=== PATIENT | male | born 1995 ===

== ENCOUNTER 2020-11-29 13:58 | Emergency (ER) | payer OTHER ==
--- NOTE | 2020-11-29 14:19 | EDM.PDOC ---
ED HPI GENERAL MEDICAL PROBLEM - General Chief Complaint: General Stated Complaint: EMS Time Seen by Provider: 11/29/20 14:02 Source of Information: Reports: Patient History Limitations: Reports: No Limitations - History of Present Illness INITIAL COMMENTS - FREE TEXT/NARRATIVE: Patient is a 25-year-old male brought in today for possible seizure. Patient is a diabetic and takes insulin. Patient girlfriend states that this morning patient had episode diffuse body shaking and lasted for about 15 seconds. She checked patient did not check his sugar but she gave him some food and when EMS arrived his sugar was 70 sugar was low before EMS arrived. States he had 1 beer last night but did not have any head injuries does not take any drugs or had any signs of infection fever chills nausea vomiting. Patient states that his last visit he seconds and resolved on his own without any medication. - Related Data Allergies Allergy/AdvReac Type Severity Reaction Status Date / Time No Known Allergies Allergy Verified 11/29/20 14:04 Home Meds: Home Meds Buprenorphine HCl/Naloxone HCl [Suboxone 12 mg-3 mg Sl Film] 8 mg PO BID 11/29/20 [History] Insulin Aspart [NovoLOG] 0 unit WITHMEALSANDBED 11/29/20 [History] Insulin Glarg,Human.Rec.Analog [Lantus] 11/29/20 [History] ED ROS GENERAL - Review of Systems Review Of Systems: See Below Constitutional: Reports: No Symptoms HEENT: Reports: No Symptoms Respiratory: Reports: No Symptoms Cardiovascular: Reports: No Symptoms Endocrine: Reports: No Symptoms GI/Abdominal: Reports: No Symptoms : Reports: No Symptoms Musculoskeletal: Reports: Hand Pain Skin: Reports: No Symptoms Neurological: Reports: No Symptoms Psychiatric: Reports: No Symptoms Hematologic/Lymphatic: Reports: No Symptoms Immunologic: Reports: No Symptoms ED EXAM, GENERAL - Physical Exam Exam: See Below Exam Limited By: No Limitations General Appearance: Alert, WD/WN, No Apparent Distress Eye Exam: Bilateral Eye: EOMI, PERRL Head: Atraumatic, Normocephalic Neck: Normal Inspection, Supple, Non-Tender Respiratory/Chest: No Respiratory Distress, Lungs Clear, Normal Breath Sounds Cardiovascular: Normal Peripheral Pulses, Regular Rate, Rhythm GI/Abdominal: Normal Bowel Sounds, Soft, Non-Tender Extremities: Normal Inspection, Normal Range of Motion Neurological: Alert, Oriented, CN II-XII Intact, Normal Cognition #1 Interpretation EKG Date: 11/29/20 Time: 14:22 Rhythm: Other (sinus tach) Rate (Beats/Min): 101 ST-T: Normal Course - Vital Signs Last Recorded V/S: Last Vital Signs Temp 98.1 F 11/29/20 14:05 Pulse 89 11/29/20 14:55 Resp 19 11/29/20 14:55 BP 123/76 11/29/20 14:55 Pulse Ox 98 11/29/20 14:55 - Orders/Labs/Meds Labs: Laboratory Tests 11/29/20 11/29/20 11/29/20 Range/Units 14:05 14:05 14:05 WBC 7.77 (4.0-11.0) K/uL RBC 4.99 (4.50-5.90) M/uL Hgb 14.1 (13.0-17.0) g/dL Hct 41.6 (38.0-50.0) % MCV 83.4 (80.0-98.0) fL MCH 28.3 (27.0-32.0) pg MCHC 33.9 (31.0-37.0) g/dL RDW Std Deviation 39.7 (28.0-62.0) fl RDW Coeff of Darvin 13 (11.0-15.0) % Plt Count 288 (150-400) K/uL MPV 9.30 (7.40-12.00) fL Neut % (Auto) 67.7 (48.0-80.0) % Lymph % (Auto) 21.6 (16.0-40.0) % Ballard % (Auto) 6.8 (0.0-15.0) % Eos % (Auto) 3.3 (0.0-7.0) % Baso % (Auto) 0.6 (0.0-1.5) % Neut # (Auto) 5.3 (1.4-5.7) K/uL Lymph # (Auto) 1.7 (0.6-2.4) K/uL Ballard # (Auto) 0.5 (0.0-0.8) K/uL Eos # (Auto) 0.3 (0.0-0.7) K/uL Baso # (Auto) 0.1 (0.0-0.1) K/uL Nucleated RBC % 0.0 /100WBC Nucleated RBCs # 0 K/uL Sodium 139 (136-148) mmol/L Potassium 4.0 (3.5-5.1) mmol/L Chloride 102 (98-107) mmol/L Carbon Dioxide 26.6 (21.0-32.0) mmol/L BUN 9 (7.0-18.0) mg/dL Creatinine 1.0 (0.8-1.3) mg/dL Est Cr Clr Drug Dosing TNP Estimated GFR (MDRD) > 60.0 ml/min Glucose 166 H (74-106) mg/dL POC Glucose 167 H (70-99) mg/dL Calcium 8.3 L (8.5-10.1) mg/dL Phosphorus 3.1 (2.6-4.7) mg/dL Magnesium 1.9 (1.8-2.4) mg/dL Total Bilirubin 0.4 (0.2-1.0) mg/dL AST 19 (15-37) IU/L ALT 21 (14-63) IU/L Alkaline Phosphatase 58 (46-116) U/L Creatine Kinase 270 (26-308) U/L Troponin I < 0.050 (0.000-0.056) ng/mL Total Protein 7.4 (6.4-8.2) g/dL Albumin 3.9 (3.4-5.0) g/dL Globulin 3.5 (2.6-4.0) g/dL Albumin/Globulin Ratio 1.1 (0.9-1.6) Lipase 39 L (73-393) U/L Urine Opiates Screen (NEGATIVE) Ur Oxycodone Screen (NEGATIVE) Urine Methadone Screen (NEGATIVE) Ur Barbiturates Screen (NEGATIVE) Ur Phencyclidine Scrn (NEGATIVE) Ur Amphetamine Screen (NEGATIVE) U Methamphetamines Scrn (NEGATIVE) U Benzodiazepines Scrn (NEGATIVE) U Cocaine Metab Screen (NEGATIVE) U Marijuana (THC) Screen (NEGATIVE) Ethyl Alcohol < 3.0 mg/dL 11/29/20 Range/Units 14:08 WBC (4.0-11.0) K/uL RBC (4.50-5.90) M/uL Hgb (13.0-17.0) g/dL Hct (38.0-50.0) % MCV (80.0-98.0) fL MCH (27.0-32.0) pg MCHC (31.0-37.0) g/dL RDW Std Deviation (28.0-62.0) fl RDW Coeff of Darvin (11.0-15.0) % Plt Count (150-400) K/uL MPV (7.40-12.00) fL Neut % (Auto) (48.0-80.0) % Lymph % (Auto) (16.0-40.0) % Ballard % (Auto) (0.0-15.0) % Eos % (Auto) (0.0-7.0) % Baso % (Auto) (0.0-1.5) % Neut # (Auto) (1.4-5.7) K/uL Lymph # (Auto) (0.6-2.4) K/uL Ballard # (Auto) (0.0-0.8) K/uL Eos # (Auto) (0.0-0.7) K/uL Baso # (Auto) (0.0-0.1) K/uL Nucleated RBC % /100WBC Nucleated RBCs # K/uL Sodium (136-148) mmol/L Potassium (3.5-5.1) mmol/L Chloride (98-107) mmol/L Carbon Dioxide (21.0-32.0) mmol/L BUN (7.0-18.0) mg/dL Creatinine (0.8-1.3) mg/dL Est Cr Clr Drug Dosing Estimated GFR (MDRD) ml/min Glucose (74-106) mg/dL POC Glucose (70-99) mg/dL Calcium (8.5-10.1) mg/dL Phosphorus (2.6-4.7) mg/dL Magnesium (1.8-2.4) mg/dL Total Bilirubin (0.2-1.0) mg/dL AST (15-37) IU/L ALT (14-63) IU/L Alkaline Phosphatase (46-116) U/L Creatine Kinase (26-308) U/L Troponin I (0.000-0.056) ng/mL Total Protein (6.4-8.2) g/dL Albumin (3.4-5.0) g/dL Globulin (2.6-4.0) g/dL Albumin/Globulin Ratio (0.9-1.6) Lipase (73-393) U/L Urine Opiates Screen NEGATIVE (NEGATIVE) Ur Oxycodone Screen NEGATIVE (NEGATIVE) Urine Methadone Screen NEGATIVE (NEGATIVE) Ur Barbiturates Screen NEGATIVE (NEGATIVE) Ur Phencyclidine Scrn NEGATIVE (NEGATIVE) Ur Amphetamine Screen NEGATIVE (NEGATIVE) U Methamphetamines Scrn NEGATIVE (NEGATIVE) U Benzodiazepines Scrn NEGATIVE (NEGATIVE) U Cocaine Metab Screen NEGATIVE (NEGATIVE) U Marijuana (THC) Screen NEGATIVE (NEGATIVE) Ethyl Alcohol mg/dL Meds: Medications Discontinued Medications Generic Name Dose Route Start Last Admin Trade Name Freq PRN Reason Stop Dose Admin Acetaminophen 650 mg 11/29/20 15:28 Acetaminophen 325 Mg/10.15 Ml Ml PO 11/29/20 15:29 NOW ONE Ondansetron HCl 4 mg 11/29/20 14:58 11/29/20 15:03 Ondansetron 4 Mg/2 Ml Sdv IVPUSH 11/29/20 14:59 4 mg ONETIME ONE Administration - Re-Assessments/Exams Free Text/Narrative Re-Assessment/Exam: 11/29/20 15:[address] is normal. Patient will be discharged to follow-up with neurology. Patient instructions not to drive swim or climb ladders until seen by neurology. Departure - Departure Time of Disposition: 15:45 Disposition: Home, Self-Care 01 Condition: Good Clinical Impression: New onset seizure - Discharge Information *PRESCRIPTION DRUG MONITORING PROGRAM REVIEWED*: Not Applicable *COPY OF PRESCRIPTION DRUG MONITORING REPORT IN PATIENT SG: Not Applicable Instructions: Seizure, Adult, [id number] Referrals: PCP,None [Primary Care Provider] - Forms: ED Department Discharge Additional Instructions: The following information is given to patients seen in the emergency department who are being discharged to home. This information is to outline your options for follow-up care. We provide all patients seen in our emergency department with a follow-up referral. The need for follow-up, as well as the timing and circumstances, are variable depending upon the specifics of your emergency department visit. If you don't have a primary care physician on staff, we will provide you with a referral. We always advise you to contact your personal physician following an emergency department visit to inform them of the circumstance of the visit and for follow-up with them and/or the need for any referrals to a consulting specialist. The emergency department will also refer you to a specialist when appropriate. This referral assures that you have the opportunity for follow-up care with a specialist. All of these measure are taken in an effort to provide you with optimal care, which includes your follow-up. Under all circumstances we always encourage you to contact your private physician who remains a resource for coordinating your care. When calling for follow-up care, please make the office aware that this follow-up is from your recent emergency room visit. If for any reason you are refused follow-up, please contact the [facility] Emergency Department at and asked to speak to the emergency department charge nurse. Please follow up with your primary care physician. If you do not have a primary care physician, see below: [facility] - Neurology Professional [address], [address] [place] [address] You were seen today for possible new onset seizure. He had a first one-time seizures we do not treat those normally but if you have second seizure he will require treatment. Above the number for neurologist we would like you to follow-up and see for further testing. Doing this time would like for you not to drive or operate heavy machinery or climb ladders or swim alone has A seizure during those times in her to several others. If you have any recurrent seizures other symptoms please return to the ED immediately. Sepsis Event Note (ED) - Focused Exam Vital Signs: Vital Signs Temp Pulse Resp BP Pulse Ox 11/29/20 14:55 89 19 123/76 98 11/29/20 14:05 98.1 F 101 H 16 135/79 94 L - Assessment/Plan Plan: Is a 25-year-old male presents today for possible seizure at home. Patient also may have had some hypoglycemia before the seizure which is unclear because patient gave him some food while EMS got there was 70. Patient has some postictal now was slightly confused afterwards but seems to be returning back to baseline. Patient has no history of seizures. Will obtain CT head labs x-ray and reassess.
[2020-11-29 14:41] LABS: BLOOD UREA NITROGEN,BUN 9 mg/dL (7.0-18.0); CARBON DIOXIDE,CO2 26.6 mmol/L (21.0-32.0); CHLORIDE,CL 102 mmol/L (98-107); GLUCOSE RANDOM 166 mg/dL (74-106); LIPASE 39 U/L (73-393); SODIUM,NA 139 mmol/L (136-148)
--- NOTE | 2020-11-29 14:56 | CT ---
INDICATION: Possible seizure. TECHNIQUE: Noncontrast CT images were acquired through the brain. COMPARISON: None. FINDINGS: The ventricles and sulci are within normal limits for patient age. No mass effect or midline shift. The lyons-white differentiation is maintained. No acute intracranial hemorrhage or pathologic extra-axial fluid collection. The globes are symmetric. The calvarium is intact. Minimal ethmoid and left frontal sinus mucosal thickening. The mastoid air cells are clear. IMPRESSION: No acute intracranial hemorrhage or mass effect. Please note that all CT scans at this facility use dose modulation, iterative reconstruction, and/or weight-based dosing when appropriate to reduce radiation dose to as low as reasonably achievable. Dictated by Mich Holden MD @ 11/29/2020 2:55:[address] Mich Holden @ Nov 29 2020 2:55PM
[2020-11-29] MEDS ORDERED: Ondansetron 4 MG/2 ML SDV IVPUSH ONE (14:58)
[2020-11-29] MEDS ORDERED: Acetaminophen 325 MG/10.15 ML ML PO ONE (15:28)
--- NOTE | 2020-11-29 15:40 | CR ---
INDICATION: Possible seizure TECHNIQUE: Single view chest. FINDINGS: The lungs are clear. The heart, mediastinum and pulmonary vessels are of normal size. There is no evidence of pleural disease. IMPRESSION: Negative chest. Dictated by Iveth Richard MD @ 11/29/2020 3:38:[address] Iveth Richard @ Nov 29 2020 3:38PM
== END 2020-11-29 15:58 | disposition home or self-care (01) ==
LOC: MW.ED 13:58
DX: R56.9 Unspecified convulsions (principal)
CPT/HCPCS: 36415; 70450; 71045; 80053; 80305; 80307; 82550; 82947; 83690; 83735; 84100; 84484; 85025; 93005; 96374; 99285; A9270; J2405

== ENCOUNTER 2021-12-03 18:11 | Emergency (ER) | payer MEDICAID | END 2021-12-03 18:41 | disposition home or self-care (01) | LOC: MW.ED 18:11 | DX: Z76.0 Encounter for issue of repeat prescription (principal); E10.9 Type 1 diabetes mellitus without complications | CPT/HCPCS: 99281 ==

== ENCOUNTER 2023-01-23 14:08 | Emergency (ER) | payer SELFPAY ==
[2023-01-23] MEDS ORDERED: Losartan 50 MG Tab PO ONE (14:27)
== END 2023-01-23 14:48 | disposition home or self-care (01) ==
LOC: MW.ED 14:08
DX: I10 Essential (primary) hypertension (principal); Z76.0 Encounter for issue of repeat prescription; E10.9 Type 1 diabetes mellitus without complications; Z79.4 Long term (current) use of insulin; Z79.899 Other long term (current) drug therapy
CPT/HCPCS: 99283; A9270